=== PATIENT | female | born 1930 | race Caucasian/White ===

== ENCOUNTER 2017-10-13 17:46 | Emergency (ER) | payer MEDICARE, BC, MEDICAID ==
[2017-10-13 17:53] VITALS: BP 110/57
[2017-10-13] MEDS: Sodium Chloride 0.9% 10 ML Syringe FLUSH PRN ×2 (18:53→20:30)
[2017-10-13] MEDS ORDERED: Sodium Chloride 0.9% 1,000 ML IV SCH (19:00)
[2017-10-13] MEDS ORDERED: Albuterol/Ipratropium 3.0-0.5 MG/3 ML Neb Soln NEB ONE (20:14)
[2017-10-13] MEDS ORDERED: Levofloxacin 500 MG Tab PO ONE (20:14)
[2017-10-13] MEDS ORDERED: methylPREDNISolone Sodium Succinate 125 MG/2 ML SDV IVPUSH ONE (20:14)
[2017-10-13] MEDS ORDERED: Codeine/Promethazine 10-6.25 MG/5 ML Syrup 5 ML UD Cup PO ONE (20:14)
--- NOTE | 2017-10-14 07:33 | EDM.PDOC ---
Scribed by Francheska Palmer 10/13/17 1900 for Ainsley Onofre NP <Calvin Lee - Last Filed: 10/13/17 20:19> ED HPI GENERAL MEDICAL PROBLEM - General Chief Complaint: Respiratory Problem Stated Complaint: BY AMBULANCE Time Seen by Provider: 10/13/17 18:03 - Related Data Allergies Allergy/AdvReac Type Severity Reaction Status Date / Time digoxin Allergy Confusion Verified 10/13/17 20:44 naproxen sodium [From Aleve] Allergy Confusion Verified 10/13/17 20:44 lorazepam AdvReac Confusion Verified 10/13/17 20:44 Home Meds: Home Meds Ipratropium [Atrovent 0.03% Nasal [place]] 2 spray NASBOTH QID PRN 09/13/13 [ History] Levothyroxine Sodium [Synthroid] 150 mcg PO DAILY 09/13/13 [History] Tiotropium [Spiriva Handihaler] 1 puff INH DAILY 09/13/13 [History] Metoprolol Tartrate 12.5 mg PO BID 09/14/13 [History] Montelukast [Singulair] 10 mg PO BEDTIME 09/14/13 [History] Simvastatin 40 mg PO BEDTIME 09/14/13 [History] Albuterol [Ventolin HFA] 2 puff INH QID PRN 11/20/13 [History] Magnesium Oxide 250 mg PO BID 11/20/13 [History] Cholecalciferol (Vitamin D3) [Vitamin D3] 400 unit PO DAILY 03/03/14 [History] Clopidogrel [Plavix] 75 mg PO DAILY 03/03/14 [History] Multivitamin [Multivitamins] 1 each PO DAILY 03/03/14 [History] Acetaminophen [Tylenol] 650 mg PO BID 05/26/14 [History] ClonazePAM [KlonoPIN] 0.75 mg PO BEDTIME 05/26/14 [History] Docusate Sodium [Colace] 200 mg PO BID 05/26/14 [History] Hypromellose [Natural Balance Tears] 2 drop EYEBOTH QID PRN 05/26/14 [History] Magnesium Hydroxide [Milk of Magnesia Concentrated] 10 ml PO DAILY PRN 06/06/14 [History] Trolamine Salicylate [Aspercreme] 1 applic TOP TID PRN 09/26/14 [History] Sennosides/Docusate Sodium [Senna S Tablet] 2 tab PO DAILY PRN 10/24/14 [History ] Acetaminophen 650 mg PO ASDIRECTED PRN 12/31/15 [History] Aspirin [Ecotrin] 81 mg PO DAILY 12/31/15 [History] guaiFENesin [Robitussin] 10 ml PO Q4H PRN 12/31/15 [History] Fluticasone/Salmeterol [Advair Diskus 500-50] 1 puff INH BID 02/29/16 [History] Vits A and D/White Pet/Lanolin [A + D Ointment] 1 applic TP BID 02/29/16 [ History] guaiFENesin/Codeine Phosphate [Guaiatussin AC Liquid] 1 tsp PO Q4HR PRN [History] Amoxicillin/Potassium Clav [Augmentin 875-125 Tablet] 1 each PO BIDAC #14 tablet 03/02/16 [Rx] Calcium Carbonate [Calcium] 1,000 mg PO ASDIRECTED PRN 03/02/16 [History] Cyanocobalamin (Vitamin B-12) [Vitamin B-12] 1,000 mcg IM Q30D 03/02/16 [History ] Lactose-Reduced Food [Boost] 120 ml PO BID 03/02/16 [History] Lidocaine 5% [Lidoderm 5%] 700 mg TOP Q24H #30 patch 03/02/16 [Rx] Pantoprazole Sodium [Protonix] 40 mg PO DAILY 03/02/16 [History] Polyvinyl Alcohol [Artificial Tears] 1 drop EYEBOTH Q6H PRN 03/02/16 [History] Venlafaxine [Effexor XR] 75 mg PO DAILY 03/02/16 [History] traMADol [Ultram] 25 mg PO BID #28 tablet 03/02/16 [Rx] Course - Vital Signs Last Recorded V/S: Last Vital Signs Temp 99.2 F 10/13/17 17:49 Pulse 98 10/13/17 17:49 Resp 16 10/13/17 17:49 BP 110/57 L 10/13/17 17:49 Pulse Ox 96 10/13/17 17:49 - Orders/Labs/Meds Orders: Active Orders 24 hr Category Date Time Status Peripheral IV Care [RC] . DIRECTED Care 10/13/17 18:12 Active RT Aerosol Therapy [RC] ASDIRECTED Care 10/13/17 20:14 Active CULTURE BLOOD [BC] Stat Lab 10/13/17 18:20 Results CULTURE BLOOD [BC] Stat Lab 10/13/17 18:25 Results Blood Culture x2 Reflex Set [OM.PC] Stat Oth 10/13/17 18:12 Ordered Peripheral IV Insertion Adult [OM.PC] Stat Oth 10/13/17 18:11 Ordered Labs: Laboratory Tests 10/13/17 10/13/17 10/13/17 Range/Units 18:20 18:20 18:20 WBC 10.7 H (5.0-10.0) 10^3/uL RBC 3.58 L (4.2-5.4) 10^6/uL Hgb 12.3 (12.0-16.0) g/dL Hct 36.4 L (37.0-47.0) % MCV 101.7 H (80-100) fL MCH 34.4 H (27.0-34.0) pg MCHC 33.8 (33.0-35.0) g/dL Plt Count 133 L (150-450) 10^3/uL Neut % (Auto) 76.6 H (42.2-75.2) % Lymph % (Auto) 13.5 L (20.5-50.1) % [place] % (Auto) 9.1 H (2-8) % Eos % (Auto) 0.6 L (1.0-3.0) % Baso % (Auto) 0.2 (0.0-1.0) % Sodium 128 L (135-145) mmol/L Potassium 4.0 (3.6-5.0) mmol/L Chloride 97 L (101-111) mmol/L Carbon Dioxide 23.0 (21.0-31.0) mmol/L Anion Gap 12.0 BUN 20 H (7-18) mg/dL Creatinine 1.0 (0.6-1.3) mg/dL Est Cr Clr Drug Dosing 39.23 mL/min Estimated GFR (MDRD) 52 BUN/Creatinine Ratio 20.00 Glucose 120 H (74-105) mg/dL Lactic Acid 1.4 (0.5-2.2) mmol/L Calcium 8.9 (8.4-10.2) mg/dl Total Bilirubin 0.9 (0.2-1.0) mg/dL AST 37 (10-42) IU/L ALT 27 (10-60) IU/L Alkaline Phosphatase 52 (42-121) IU/L Total Protein 7.4 (6.7-8.2) g/dl Albumin 3.0 L (3.2-5.5) g/dl Globulin 4.4 Albumin/Globulin Ratio 0.68 Meds: Medications Discontinued Medications Generic Name Dose Route Start Last Admin Trade Name Freq PRN Reason Stop Dose Admin Albuterol/Ipratropium 3 ml 10/13/17 20:14 10/13/17 20:28 Duoneb 3.0-0.5 Mg/3 Ml NEB 10/13/17 20:15 3 ml ONETIME ONE Administration Sodium Chloride 1,000 mls @ 50 mls/hr 10/13/17 19:00 10/13/17 18:53 Normal Saline IV 50 mls/hr ASDIRECTED LIZA Administration Levofloxacin 500 mg 10/13/17 20:14 10/13/17 20:27 Levaquin PO 10/13/17 20:15 500 mg ONETIME ONE Administration Methylprednisolone Sodium Succinate 125 mg 10/13/17 20:14 10/13/17 20:28 Solu-Medrol IVPUSH 10/13/17 20:15 125 mg ONETIME ONE Administration Promethazine HCl/Codeine 5 ml 10/13/17 20:14 10/13/17 20:28 Phenergan With Codeine PO 10/13/17 20:15 5 ml ONETIME ONE Administration Sodium Chloride 10 ml 10/13/17 18:11 10/13/17 20:30 Saline Flush FLUSH 10 ml ASDIRECTED PRN Administration Keep Vein Open - Re-Assessments/Exams Free Text/Narrative Re-Assessment/Exam: 10/13/17 20:19 re-exam; bilateral rhonchi-wheeze with satisfact air motion without retraction. results discussed with pt & family who state pt always get better with levaquin but wasn't given that this time. got augmentin that made her feel worse. explained to pt & family re; side effects of levaquin. they elected levaquin since it has always worked well. Departure - Departure Disposition: DC/Tfer to [facility] Condition: Good Clinical Impression: Bronchospasm with bronchitis, acute - Discharge Information Instructions: Acute Bronchitis, [id number] Forms: ED Department Discharge Additional Instructions: 1) continue regular meds 2) SEE ORDER SHEET FOR ADDITIONAL MEDS. 3) recheck if there is any change or concern. - My Orders Last 24 Hours: My Active Orders 10/13/17 18:11 Peripheral IV Insertion Adult [OM.PC] Stat 10/13/17 18:12 Peripheral IV Care [RC] . DIRECTED Blood Culture x2 Reflex Set [OM.PC] Stat 10/13/17 18:20 CULTURE BLOOD [BC] Stat 10/13/17 18:25 CULTURE BLOOD [BC] Stat - Assessment/Plan Last 24 Hours: My Active Orders 10/13/17 18:11 Peripheral IV Insertion Adult [OM.PC] Stat 10/13/17 18:12 Peripheral IV Care [RC] . DIRECTED Blood Culture x2 Reflex Set [OM.PC] Stat 10/13/17 18:20 CULTURE BLOOD [BC] Stat 10/13/17 18:25 CULTURE BLOOD [BC] Stat <Ainsley Onofre - Last Filed: 10/14/17 07:33> ED HPI GENERAL MEDICAL PROBLEM - General Source of Information: Reports: Patient, RN, RN Notes Reviewed History Limitations: Reports: No Limitations - History of Present Illness INITIAL COMMENTS - FREE TEXT/NARRATIVE: Patient presented per [facility] with symptoms thatbegan about 10 days to 2 weeks ago with cough and lethargy. She was given Augmentin and finished that approximately 3 days ago. She has had increased lethargy,fever, back and chest pain.She has been running temperatures of 99 to 100. She last had Tylenol at 4 p.[address]. Location: Reports: Chest Quality: Reports: Ache Severity: Moderate Improves with: Reports: None Worsens with: Reports: None Associated Symptoms: Reports: No Other Symptoms Past Medical History HEENT History: Reports: Impaired Vision Other HEENT History: wears glasses Cardiovascular History: Reports: Bypass, CAD, High Cholesterol Respiratory History: Reports: Asthma, COPD, Pneumonia, Recurrent Gastrointestinal History: Reports: GERD Genitourinary History: Reports: Acute Renal Failure, UTI, Recurrent [employer] History: Reports: Musculoskeletal History: Reports: Back Pain, Chronic, Fracture, Osteoporosis, Other (See Below) Other Musculoskeletal History: spinal stenosis Psychiatric History: Reports: Depression Endocrine/Metabolic History: Reports: Hypothyroidism Hematologic History: Reports: Anemia, B12 Deficiency, Blood Transfusion(s) Immunologic History: Reports: None Oncologic (Cancer) History: Reports: Colon - Past Surgical History Cardiovascular Surgical History: Reports: Valve Replacement GI Surgical History: Reports: Other (See Below) Oncologic Surgical History: Reports: Other (See Below) Social & Family History - Family History Family Medical History: Noncontributory Cardiac: Reports: MD - Tobacco Use Smoking Status *Q: Never Smoker Years of Tobacco use: 40 Used Tobacco, but Quit: Yes Month Tobacco Last Used: 1988 Second Hand Smoke Exposure: No - Alcohol Use Days Per Week of Alcohol Use: 0 - Recreational Drug Use Recreational Drug Use: No - Living Situation & Occupation Living situation: Reports: , Extended Care Facility Occupation: Retired ED ROS GENERAL - Review of Systems Review Of Systems: ROS reveals no pertinent complaints other than HPI. ED EXAM, GENERAL - Physical Exam Exam: See Below Exam Limited By: No Limitations General Appearance: Alert, WD/WN, No Apparent Distress Eye Exam: Bilateral Eye: Normal Inspection Ears: Normal External Exam, Normal Canal, Hearing Grossly Normal, Normal TMs Nose: Normal Inspection, Normal Mucosa, No Blood Throat/Mouth: Other (dry mucous membranes.) Head: Atraumatic, Normocephalic Neck: Normal Inspection, Supple, Non-Tender, Full Range of Motion Respiratory/Chest: Rhonchi (bases bilateral.) Cardiovascular: Regular Rate, Rhythm GI/Abdominal: Normal Bowel Sounds, Soft, Non-Tender, No Organomegaly, No Distention, No Abnormal Bruit, No Mass (Female) Exam: Deferred Rectal (Female) Exam: Deferred Back Exam: Normal Inspection, Full Range of Motion, NT Extremities: Normal Inspection, Normal Range of Motion, Non-Tender, Normal Capillary Refill, No Pedal Edema Neurological: Alert, Oriented, CN II-XII Intact, Normal Cognition, Normal Gait, Normal Reflexes, No Motor/Sensory Deficits Psychiatric: Normal Affect, Normal Mood Skin Exam: Warm, Dry, Intact, Normal Color, No Rash Lymphatic: No Adenopathy Course - Orders/Labs/Meds Labs: Laboratory Tests 10/13/17 10/13/17 10/13/17 Range/Units 18:20 18:20 18:20 WBC 10.7 H (5.0-10.0) 10^3/uL RBC 3.58 L (4.2-5.4) 10^6/uL Hgb 12.3 (12.0-16.0) g/dL Hct 36.4 L (37.0-47.0) % MCV 101.7 H (80-100) fL MCH 34.4 H (27.0-34.0) pg MCHC 33.8 (33.0-35.0) g/dL Plt Count 133 L (150-450) 10^3/uL Neut % (Auto) 76.6 H (42.2-75.2) % Lymph % (Auto) 13.5 L (20.5-50.1) % [place] % (Auto) 9.1 H (2-8) % Eos % (Auto) 0.6 L (1.0-3.0) % Baso % (Auto) 0.2 (0.0-1.0) % Sodium 128 L (135-145) mmol/L Potassium 4.0 (3.6-5.0) mmol/L Chloride 97 L (101-111) mmol/L Carbon Dioxide 23.0 (21.0-31.0) mmol/L Anion Gap 12.0 BUN 20 H (7-18) mg/dL Creatinine 1.0 (0.6-1.3) mg/dL Est Cr Clr Drug Dosing 39.23 mL/min Estimated GFR (MDRD) 52 BUN/Creatinine Ratio 20.00 Glucose 120 H (74-105) mg/dL Lactic Acid 1.4 (0.5-2.2) mmol/L Calcium 8.9 (8.4-10.2) mg/dl Total Bilirubin 0.9 (0.2-1.0) mg/dL AST 37 (10-42) IU/L ALT 27 (10-60) IU/L Alkaline Phosphatase 52 (42-121) IU/L Total Protein 7.4 (6.7-8.2) g/dl Albumin 3.0 L (3.2-5.5) g/dl Globulin 4.4 Albumin/Globulin Ratio 0.68 Departure - Departure Time of Disposition: 22:15 - My Orders Last 24 Hours: My Active Orders 10/13/17 18:11 Peripheral IV Insertion Adult [OM.PC] Stat 10/13/17 18:12 Peripheral IV Care [RC] . DIRECTED Blood Culture x2 Reflex Set [OM.PC] Stat 10/13/17 18:20 CULTURE BLOOD [BC] Stat 10/13/17 18:25 CULTURE BLOOD [BC] Stat - Assessment/Plan Last 24 Hours: My Active Orders 10/13/17 18:11 Peripheral IV Insertion Adult [OM.PC] Stat 10/13/17 18:12 Peripheral IV Care [RC] . DIRECTED Blood Culture x2 Reflex Set [OM.PC] Stat 10/13/17 18:20 CULTURE BLOOD [BC] Stat 10/13/17 18:25 CULTURE BLOOD [BC] Stat I have read and agree with the documentation that has been completed regarding this visit. By signing this record, I attest that the documentation was completed in my physical presence and is an accurate record of the encounter.
== END 2017-10-13 21:30 ==
LOC: DL.ED 17:46
DX: J20.9 Acute bronchitis, unspecified (principal); I25.10 Atherosclerotic heart disease of native coronary artery without angina pectoris; E78.00 Pure hypercholesterolemia, unspecified; J44.9 Chronic obstructive pulmonary disease, unspecified; K21.9 Gastro-esophageal reflux disease without esophagitis; F32.9 Major depressive disorder, single episode, unspecified; E03.9 Hypothyroidism, unspecified; Z87.891 Personal history of nicotine dependence; Z95.2 Presence of prosthetic heart valve; Z79.02 Long term (current) use of antithrombotics/antiplatelets; Z79.899 Other long term (current) drug therapy; Z88.8 Allergy status to other drugs, medicaments and biological substances; Z79.82 Long term (current) use of aspirin
CPT/HCPCS: 36415; 71010; 80053; 83605; 85025; 87040; 96361; 96374; 99283; A9270; J2930; J7030; J7050; 99284

== ENCOUNTER 2017-11-12 17:01 | Emergency (ER) | payer MEDICARE, BC, MEDICAID ==
[2017-11-12 16:09] VITALS: BP 110/58
[2017-11-12 18:16] LABS: ANION GAP 11.5; CHLORIDE,CL 93 mmol/L (101-111); SODIUM,NA 125 mmol/L (135-145)
--- NOTE | 2017-11-12 19:59 | EDM.PDOC ---
ED HPI GENERAL MEDICAL PROBLEM - General Chief Complaint: Genitourinary Problem Stated Complaint: INCREASED CONFUSION Time Seen by Provider: 11/12/17 17:15 Source of Information: Reports: Patient, EMS, EMS Notes Reviewed, Family, [facility] Records, RN, RN Notes Reviewed History Limitations: Reports: Altered Mental Status - History of Present Illness INITIAL COMMENTS - FREE TEXT/NARRATIVE: Patient presents with a UTI. She was given Augmentin on Monday by Mary Baez. She also ordered a liter of fluids. The correction could not get an IV started so order was discontinued. She now presents from the correction Therewith hallucinations. Onset: Gradual Duration: Getting Worse Quality: Reports: Ache, Burning Severity: Severe Improves with: Reports: None Worsens with: Reports: None Associated Symptoms: Reports: No Other Symptoms - Related Data Allergies Allergy/AdvReac Type Severity Reaction Status Date / Time digoxin Allergy Confusion Verified 11/12/17 16:10 naproxen sodium [From Aleve] Allergy Confusion Verified 11/12/17 16:10 lorazepam AdvReac Confusion Verified 11/12/17 16:10 Home Meds: Home Meds Ipratropium [Atrovent 0.03% Nasal [place]] 2 spray NASBOTH QID PRN 09/13/13 [ History] Levothyroxine Sodium [Synthroid] 150 mcg PO DAILY 09/13/13 [History] Metoprolol Tartrate 12.5 mg PO BID 09/14/13 [History] Montelukast [Singulair] 10 mg PO BEDTIME 09/14/13 [History] Simvastatin 40 mg PO BEDTIME 09/14/13 [History] Albuterol [Ventolin HFA] 2 puff INH QID PRN 11/20/13 [History] Magnesium Oxide 500 mg PO TID 11/20/13 [History] Cholecalciferol (Vitamin D3) [Vitamin D3] 400 unit PO DAILY 03/03/14 [History] Clopidogrel [Plavix] 75 mg PO DAILY 03/03/14 [History] Multivitamin [Multivitamins] 1 each PO DAILY 03/03/14 [History] Acetaminophen [Tylenol] 650 mg PO BID 05/26/14 [History] ClonazePAM [KlonoPIN] 0.75 mg PO BEDTIME 05/26/14 [History] Docusate Sodium [Colace] 200 mg PO BID 05/26/14 [History] Hypromellose [Natural Balance Tears] 2 drop EYEBOTH QID PRN 05/26/14 [History] Magnesium Hydroxide [Milk of Magnesia Concentrated] 10 ml PO DAILY PRN 06/06/14 [History] Trolamine Salicylate [Aspercreme] 1 applic TOP TID PRN 09/26/14 [History] Sennosides/Docusate Sodium [Senna S Tablet] 2 tab PO DAILY PRN 10/24/14 [History ] Acetaminophen 650 mg PO ASDIRECTED PRN 12/31/15 [History] Aspirin [Ecotrin] 81 mg PO DAILY 12/31/15 [History] guaiFENesin [Robitussin] 10 ml PO Q4H PRN 12/31/15 [History] Fluticasone/Salmeterol [Advair Diskus 500-50] 1 puff INH BID 02/29/16 [History] guaiFENesin/Codeine Phosphate [Guaiatussin AC Liquid] 1 tsp PO Q4HR PRN [History] Amoxicillin/Potassium Clav [Augmentin 875-125 Tablet] 1 each PO BIDAC #14 tablet 03/02/16 [Rx] Cyanocobalamin (Vitamin B-12) [Vitamin B-12] 1,000 mcg IM Q30D 03/02/16 [History ] Lactose-Reduced Food [Boost] 120 ml PO BID 03/02/16 [History] Lidocaine 5% [Lidoderm 5%] 700 mg TOP Q24H #30 patch 03/02/16 [Rx] Pantoprazole Sodium [Protonix] 20 mg PO DAILY 03/02/16 [History] Polyvinyl Alcohol [Artificial Tears] 1 drop EYELF BID 03/02/16 [History] Ascorbic Acid [Vitamin C] 500 mg PO BID 11/12/17 [History] DULoxetine HCl [Duloxetine HCl] 40 mg PO DAILY 11/12/17 [History] Sodium Chloride 1 gm PO DAILY 11/12/17 [History] Tobramycin 0.3% [Tobramycin 0.3% Ophth Soln] 1 drop EYELF BID 11/12/17 [History] Trolamine Salicylate [Aspercreme] 1 applic TP BID 11/12/17 [History] Past Medical History HEENT History: Reports: Impaired Vision Other HEENT History: wears glasses Cardiovascular History: Reports: Bypass, CAD, High Cholesterol Respiratory History: Reports: Asthma, COPD, Pneumonia, Recurrent Gastrointestinal History: Reports: GERD, GI Bleed Genitourinary History: Reports: Acute Renal Failure, UTI, Recurrent LINE PERSON History: Reports: Musculoskeletal History: Reports: Back Pain, Chronic, Fracture, Osteoporosis, Other (See Below) Other Musculoskeletal History: spinal stenosis Psychiatric History: Reports: Depression Endocrine/Metabolic History: Reports: Hypothyroidism Hematologic History: Reports: Anemia, B12 Deficiency, Blood Transfusion(s) Immunologic History: Reports: None Oncologic (Cancer) History: Reports: Colon - Past Surgical History Cardiovascular Surgical History: Reports: Valve Replacement GI Surgical History: Reports: Other (See Below) Oncologic Surgical History: Reports: Other (See Below) Social & Family History - Family History Family Medical History: Noncontributory Cardiac: Reports: [place] - Tobacco Use Smoking Status *Q: Former Smoker Years of Tobacco use: 40 Used Tobacco, but Quit: Yes Month Tobacco Last Used: unknown Second Hand Smoke Exposure: No - Caffeine Use Caffeine Use: Reports: None - Alcohol Use Days Per Week of Alcohol Use: 0 - Recreational Drug Use Recreational Drug Use: No - Living Situation & Occupation Living situation: Reports: , Extended Care Facility Occupation: Retired ED ROS GENERAL - Review of Systems Review Of Systems: ROS reveals no pertinent complaints other than HPI. - Physical Exam Exam: See Below Exam Limited By: Altered Mental Status General Appearance: Other (confused) Eye Exam: Bilateral Eye: Normal Inspection Ears: Normal External Exam, Normal Canal, Hearing Grossly Normal, Normal TMs Nose: Normal Inspection, Normal Mucosa, No Blood Throat/Mouth: Other (dry oral mucus membranes) Head Exam: Atraumatic, Normocephalic Neck: Normal Inspection, Supple, Non-Tender, Full Range of Motion Respiratory/Chest: Other (decreased lung sounds) GI/Abdominal: Normal Bowel Sounds, Soft, Non-Tender, No Organomegaly, No Distention, No Abnormal Bruit, No Mass (Female) Exam: Deferred Rectal (Female) Exam: Deferred Neuro Exam (Abbreviated): Other (confused) Back Exam: Normal Inspection, Full Range of Motion, NT Extremities: Other (decreased range of motion) Skin Exam: Warm, Dry, Intact, Normal Color, No Rash EKG INTERPRETATION EKG Date: 11/12/17 Time: 17:34 Rhythm: A-Flutter Rate (Beats/Min): 73 Comparison: Change From Previous EKG Course - Vital Signs Last Recorded V/S: Last Vital Signs Temp 98.0 F 11/12/17 16:05 Pulse 79 11/12/17 16:05 Resp 16 11/12/17 16:05 BP 110/58 L 11/12/17 16:05 Pulse Ox 99 11/12/17 16:05 - Orders/Labs/Meds Labs: Laboratory Tests 11/12/17 11/12/17 11/12/17 Range/Units 17:47 17:47 17:47 WBC 5.1 (5.0-10.0) 10^3/uL RBC 3.16 L (4.2-5.4) 10^6/uL Hgb 10.6 L D (12.0-16.0) g/dL Hct 30.9 L (37.0-47.0) % MCV 97.8 D (80-100) fL MCH 33.5 (27.0-34.0) pg MCHC 34.3 (33.0-35.0) g/dL Plt Count 102 L (150-450) 10^3/uL Neut % (Auto) 57.6 (42.2-75.2) % Lymph % (Auto) 24.5 (20.5-50.1) % [place] % (Auto) 14.0 H (2-8) % Eos % (Auto) 3.7 H (1.0-3.0) % Baso % (Auto) 0.2 (0.0-1.0) % Sodium 125 L (135-145) mmol/L Potassium 3.5 L (3.6-5.0) mmol/L Chloride 93 L (101-111) mmol/L Carbon Dioxide 24.0 (21.0-31.0) mmol/L Anion Gap 11.5 BUN 27 H (7-18) mg/dL Creatinine 0.9 (0.6-1.3) mg/dL Est Cr Clr Drug Dosing 42.02 mL/min Estimated GFR (MDRD) 59 BUN/Creatinine Ratio 30.00 Glucose 90 (74-105) mg/dL Lactic Acid 2.0 (0.5-2.2) mmol/L Calcium 8.5 (8.4-10.2) mg/dl Total Bilirubin 0.6 (0.2-1.0) mg/dL AST 28 (10-42) IU/L ALT 17 (10-60) IU/L Alkaline Phosphatase 51 (42-121) IU/L Troponin I < 0.02 (0.00-0.02) ng/ml Total Protein 7.2 (6.7-8.2) g/dl Albumin 2.9 L (3.2-5.5) g/dl Globulin 4.3 Albumin/Globulin Ratio 0.67 Urine Color (YELLOW) Urine Appearance (CLEAR) Urine pH (5.0-9.0) Ur Specific [place] (1.005-1.030) Urine Protein (NEGATIVE) Urine Glucose (UA) (NEGATIVE) Urine Ketones (NEGATIVE) Urine Occult Blood (NEGATIVE) Urine Nitrite (NEGATIVE) Urine Bilirubin (NEGATIVE) Urine Urobilinogen (0.2-1.0) mg/dL Ur Leukocyte Esterase (NEGATIVE) Urine RBC /HPF Urine WBC (0-5/HPF) /HPF Ur Epithelial Cells /HPF Urine Bacteria (0-FEW/HPF) /HPF 11/12/17 Range/Units 17:55 WBC (5.0-10.0) 10^3/uL RBC (4.2-5.4) 10^6/uL Hgb (12.0-16.0) g/dL Hct (37.0-47.0) % MCV (80-100) fL MCH (27.0-34.0) pg MCHC (33.0-35.0) g/dL Plt Count (150-450) 10^3/uL Neut % (Auto) (42.2-75.2) % Lymph % (Auto) (20.5-50.1) % [place] % (Auto) (2-8) % Eos % (Auto) (1.0-3.0) % Baso % (Auto) (0.0-1.0) % Sodium (135-145) mmol/L Potassium (3.6-5.0) mmol/L Chloride (101-111) mmol/L Carbon Dioxide (21.0-31.0) mmol/L Anion Gap BUN (7-18) mg/dL Creatinine (0.6-1.3) mg/dL Est Cr Clr Drug Dosing mL/min Estimated GFR (MDRD) BUN/Creatinine Ratio Glucose (74-105) mg/dL Lactic Acid (0.5-2.2) mmol/L Calcium (8.4-10.2) mg/dl Total Bilirubin (0.2-1.0) mg/dL AST (10-42) IU/L ALT (10-60) IU/L Alkaline Phosphatase (42-121) IU/L Troponin I (0.00-0.02) ng/ml Total Protein (6.7-8.2) g/dl Albumin (3.2-5.5) g/dl Globulin Albumin/Globulin Ratio Urine Color Yellow (YELLOW) Urine Appearance Slightly cloudy (CLEAR) Urine pH 6.0 (5.0-9.0) Ur Specific [place] <= 1.005 (1.005-1.030) Urine Protein Negative (NEGATIVE) Urine Glucose (UA) Negative (NEGATIVE) Urine Ketones Negative (NEGATIVE) Urine Occult Blood Trace-lysed H (NEGATIVE) Urine Nitrite Negative (NEGATIVE) Urine Bilirubin Negative (NEGATIVE) Urine Urobilinogen 0.2 (0.2-1.0) mg/dL Ur Leukocyte Esterase Small H (NEGATIVE) Urine RBC 0-5 /HPF Urine WBC 30-40 H (0-5/HPF) /HPF Ur Epithelial Cells Few /HPF Urine Bacteria Few (0-FEW/HPF) /HPF Departure - Departure Time of Disposition: 19:59 Disposition: [facility] Condition: Fair Clinical Impression: Altered mental status, Hyponatremia, Hypochloremia - Discharge Information Instructions: Hyponatremia, [id number], Confusion, Rehydration, Elderly Referrals: PCP,Unobtain [Primary Care Provider] - Forms: ED Department Discharge Additional Instructions: STOP AUGMENTIN Leave Saline Lock in and run Normal Saline 0.9% at 100cc/hr until 1 Liter is completed. May D/C Saline lock after the fluids have infused. Follow up with her primary care facility this week.
--- NOTE | 2017-11-14 07:10 | EKG ---
11/12/2017- JESSE GARZA - EKG done on an 87-year-old female showing sinus rhythm, incomplete left bundle- branch block, heart rate of 73 beats per minute. [facility] /[id number]
== END 2017-11-12 20:30 ==
LOC: DL.ED 17:01
DX: R41.82 Altered mental status, unspecified (principal); E87.1 Hypo-osmolality and hyponatremia; E87.8 Other disorders of electrolyte and fluid balance, not elsewhere classified; J44.9 Chronic obstructive pulmonary disease, unspecified; E03.9 Hypothyroidism, unspecified; Z88.8 Allergy status to other drugs, medicaments and biological substances; Z79.899 Other long term (current) drug therapy; Z87.891 Personal history of nicotine dependence; Z79.82 Long term (current) use of aspirin; Z79.02 Long term (current) use of antithrombotics/antiplatelets
CPT/HCPCS: 36415; 80053; 81001; 83605; 84484; 85025; 87040; 87086; 93005; 93010; 99284; 99285